=== PATIENT | female | born 2000 | race Caucasian/White ===

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

== ENCOUNTER 2022-10-08 20:37 | Emergency (ER) | payer OTHER | END 2022-10-08 22:44 | disposition home or self-care (01) | LOC: ED 20:37 | DX: S60.551A Superficial foreign body of right hand, initial encounter (principal); X50.0XXA Overexertion from strenuous movement or load, initial encounter; Y93.89 Activity, other specified; Y92.89 Other specified places as the place of occurrence of the external cause; Y99.0 Civilian activity done for income or pay ==

== ENCOUNTER → 2022-12-08 | Outpatient (CLI) | payer OTHER | END | disposition home or self-care (01) | LOC: RAD 08:17 | PROVIDERS: ATTEND Nurse Practitioner Family | DX: M17.12 Unilateral primary osteoarthritis, left knee (principal); M25.462 Effusion, left knee ==

== ENCOUNTER 2023-01-18 23:42 | Emergency (ER) | payer OTHER ==
[2023-01-19] MEDS ORDERED: ONDANSETRON4 MG SL (02:29)
== END 2023-01-19 02:41 | disposition home or self-care (01) ==
LOC: ED 23:42
DX: K52.9 Noninfective gastroenteritis and colitis, unspecified (principal); R11.2 Nausea with vomiting, unspecified; E66.9 Obesity, unspecified; Z68.30 Body mass index [BMI] 30.0-30.9, adult

== ENCOUNTER 2023-03-31 22:10 | Emergency (ER) | payer OTHER ==
[~2023-03-31] VITALS: Ht 157.4 cm; Wt 90.7 kg
[~2023-03-31 22:10] MED LIST changes: +ONDANSETRON4 MG SL
== END 2023-03-31 23:59 | disposition home or self-care (01) ==
LOC: ED 22:10
DX: S60.011A Contusion of right thumb without damage to nail, initial encounter (principal); W20.8XXA Other cause of strike by thrown, projected or falling object, initial encounter; Y93.89 Activity, other specified; Y92.89 Other specified places as the place of occurrence of the external cause; Y99.0 Civilian activity done for income or pay

== ENCOUNTER 2023-06-24 14:07 | Emergency (ER) | payer SELFPAY ==
[~2023-06-24] VITALS: Wt 95.3 kg
[2023-06-24] MEDS ORDERED: PENICILLIN VK500 MG PO (17:14)
== END 2023-06-24 17:19 | disposition home or self-care (01) ==
LOC: ED 14:07
DX: J02.9 Acute pharyngitis, unspecified (principal); Z98.890 Other specified postprocedural states

== ENCOUNTER 2025-03-22 17:06 | Emergency (ER) | payer OTHER ==
[~2025-03-22] VITALS: Wt 77.1 kg
[~2025-03-22 17:06] MED LIST changes: +PENICILLIN VK500 MG PO
[2025-03-22 18:37] LABS: BASO # 0.0 10*3/uL (0.0-0.1); BASO % 0.6 % (0.0-1.0); EOS # 0.1 10*3/uL (0.0-0.4); EOS % 1.7 % (1.0-4.0); MEAN CELL VOLUME 90.2 fl (81.0-99.0); MEAN CORPUSCULAR HGB 29.8 pg (27.0-31.0); MEAN PLATELET VOLUME 10.7 fl (9.6-12.3); MONO # 0.5 10*3/uL (0.1-1.0); MONO % 7.9 % (3.0-9.0); NEUT # 4.1 10*3/uL (2.3-7.9); NEUT % 61.2 % (47.0-73.0); NUCLEATED RED BLOOD CELL 0.0 % (0.0-0.0); NUCLEATED RED BLOOD CELL 0.0 10*3/uL (0.0-0.0); PLATELET COUNT AUTOMATED 250 10*3/uL (130-400); RED CELL DISTRI WIDTH 12.4 % (0-14.5)
[2025-03-22 18:49] LABS: BILIRUBIN Negative (Negative); BLOOD Negative (Negative); CLARITY Clear (Clear); COLOR Yellow (Yellow); KETONE 1+ (Negative); LEUKO ESTERASE Trace (Negative); NITRITE Negative (Negative); PH 6.0 (4.5-8.0); SPECIFIC GRAVITY 1.020 (1.001-1.030); UROBILINOGEN 0.2 E.U./dl (0.0-1.0)
[2025-03-22 19:04] LABS: BACTERIA 2+; EPITHELIAL CELLS 16-20; MUCOUS 1+; RBC 0-2 rbc/hpf (0-2)
[2025-03-22 19:09] LABS: BUN 8 mg/dl (9-23)
[2025-03-22 19:15] LABS: BETA-HCG, QUANT 1281.0 mIU/mL (3-10)
[2025-03-22] MEDS ORDERED: CEPHALEXIN500 M1 PO (19:31)
[2025-03-22] MEDS ORDERED: CEPHALEXIN 500 MG CAP PO ONE (19:35)
== END 2025-03-22 19:37 | disposition home or self-care (01) ==
LOC: ED 17:06
PROVIDERS: Nurse Practitioner Family
DX: O23.41 Unspecified infection of urinary tract in pregnancy, first trimester (principal); O26.891 Other specified pregnancy related conditions, first trimester; R10.2 Pelvic and perineal pain; R25.2 Cramp and spasm; Z88.8 Allergy status to other drugs, medicaments and biological substances; Z91.040 Latex allergy status; Z3A.01 Less than 8 weeks gestation of pregnancy

== ENCOUNTER 2025-05-07 23:27 | Emergency (ER) | payer MEDICAID ==
[~2025-05-07] VITALS: Ht 157.5 cm; Wt 74.8 kg
[~2025-05-07 23:27] MED LIST changes: +CEPHALEXIN500 M1 PO
[2025-05-07] MEDS ORDERED: albuterol sulfate HF INH (23:40)
[2025-05-08] MEDS ORDERED: SODIUM CHLORIDE 0.9% 1,000 ML IV ONE (00:05)
[2025-05-08 00:14] LABS: BASO # 0.0 10*3/uL (0.0-0.1); BASO % 0.5 % (0.0-1.0); EOS # 0.2 10*3/uL (0.0-0.4); EOS % 2.5 % (1.0-4.0); MEAN CELL VOLUME 86.6 fl (81.0-99.0); MEAN CORPUSCULAR HGB 29.5 pg (27.0-31.0); MEAN PLATELET VOLUME 10.9 fl (9.6-12.3); MONO # 0.6 10*3/uL (0.1-1.0); MONO % 7.5 % (3.0-9.0); NEUT # 4.9 10*3/uL (2.3-7.9); NEUT % 60.2 % (47.0-73.0); NUCLEATED RED BLOOD CELL 0.0 % (0.0-0.0); NUCLEATED RED BLOOD CELL 0.0 10*3/uL (0.0-0.0); PLATELET COUNT AUTOMATED 244 10*3/uL (130-400); RED CELL DISTRI WIDTH 11.8 % (0-14.5)
[2025-05-08 00:31] LABS: BUN 5 mg/dl (9-23)
[2025-05-08 00:32] LABS: BILIRUBIN Negative (Negative); BLOOD Negative (Negative); CLARITY Clear (Clear); COLOR Yellow (Yellow); KETONE Negative (Negative); LEUKO ESTERASE Trace (Negative); NITRITE Negative (Negative); PH 6.0 (4.5-8.0); SPECIFIC GRAVITY <= 1.005 (1.001-1.030); UROBILINOGEN 0.2 E.U./dl (0.0-1.0)
[2025-05-08 00:46] LABS: BACTERIA 1+; EPITHELIAL CELLS 16-20; MUCOUS TRACE; RBC 0-2 rbc/hpf (0-2)
[2025-05-08] MEDS ORDERED: Ondansetron4 MG PO (03:33)
== END 2025-05-08 03:38 | disposition home or self-care (01) ==
LOC: ED 23:27
PROVIDERS: Emergency Medicine
DX: O99.612 Diseases of the digestive system complicating pregnancy, second trimester (principal); K52.9 Noninfective gastroenteritis and colitis, unspecified; O21.0 Mild hyperemesis gravidarum; O99.519 Diseases of the respiratory system complicating pregnancy, unspecified trimester; J45.909 Unspecified asthma, uncomplicated; Z20.822 Contact with and (suspected) exposure to COVID-19; Z91.040 Latex allergy status; Z88.8 Allergy status to other drugs, medicaments and biological substances; Z79.899 Other long term (current) drug therapy; Z3A.10 10 weeks gestation of pregnancy